=== PATIENT | male | born 1940 | race Asian ===

== ENCOUNTER 2017-11-29 23:55 | Emergency (ER) | payer SELFPAY ==
[~2017-11-29] VITALS: Ht 160 cm; Wt 54.4 kg
[2017-11-30] MEDS ORDERED: DEXAMETHASONE SOD PHOS 10MG/1ML VIAL INJ ONE (00:44)
[2017-11-30] MEDS ORDERED: cloNIDine HCL 0.1 MG TAB ONE (00:44)
[2017-11-30] MEDS ORDERED: cloNIDine HCL 0.1 MG TAB PO ONE (00:45)
[2017-11-30] MEDS ORDERED: DEXAMETHASONE SOD PHOS 10MG/1ML VIAL INJ IV ONE (00:45)
[2017-11-30] MEDS ORDERED: LEVETIRACETAM 500 MG/5ML INJ IV ONE (01:14)
[2017-11-30 01:15] LABS: Hemoglobin 16.8 g/dL (13.5-17.5); Mean Corpuscular Hgb Conc. 34.4 g/dL (32.0-36.0); Mean Corpuscular Volume 96.1 fL (80.0-100.0); Platelet Count (auto) 201 10^3/uL (140-450); Red Cell Distribution Width 12.2 % (11.8-14.3); White Blood Cell 15.9 10^3/uL (4.4-10.8)
[2017-11-30] MEDS ORDERED: LEVETIRACETAM INJ 1,000 MG in D5W 5% 100 ML IV ONE (01:15)
[2017-11-30 01:23] LABS: Alanine Aminotransferase 18 U/L (16-61); Anion Gap 17 (5-15); Aspartate Aminotransferase 21 U/L (15-37); BUN/Creatinine Ratio 9.8; Blood Alcohol < 3.0 mg/dL (0-5); Blood Urea Nitrogen 13 mg/dL (7-18); Calcium 9.5 mg/dL (8.5-10.1); Carbon Dioxide 20 mmol/L (21-32); Chloride 99 mmol/L (98-107); GFR African American 67 mL/min; GFR Non-African American 56 mL/min; Glucose 364 mg/dL (74-106); Potassium 3.9 mmol/L (3.5-5.1); Sodium 136 mmol/L (136-145)
[2017-11-30 01:27] LABS: Basophils % (manual) 0 (0.0-2.0); Blast Cells 0; Eosinophils % (manual) 0 (0-7); Metamyelocytes % 0; Myelocytes % 0; Promyelocytes % 0; Reactive Lymphocytes 0
[2017-11-30 01:39] VITALS: BP 141/78
[2017-11-30 01:41] LABS: Alkaline Phosphatase 98 U/L (45-117); Bilirubin, Total 0.7 mg/dL (0.2-1.0)
[2017-11-30 03:13] LABS: Band Neutrophils % (manual) 2; Lymphocytes % (manual) 8 (10.0-50.0); Monocytes % (manual) 1 (0-12)
== END 2017-11-30 01:09 | disposition short-term general hospital (02) ==
LOC: ER 23:55
DX: S06.6X0A Traumatic subarachnoid hemorrhage without loss of consciousness, initial encounter (principal); W19.XXXA Unspecified fall, initial encounter; Y93.89 Activity, other specified; Y92.89 Other specified places as the place of occurrence of the external cause; Y99.8 Other external cause status
CPT/HCPCS: 36415; 70450; 80053; 80320; 83735; 84484; 85007; 85027; 93005; 96374; 96375; 99291; J1100; J1953; J7060

== ENCOUNTER 2017-12-09 21:39 | Emergency (ER) | payer MEDICARE ==
[~2017-12-09] VITALS: Ht 160 cm; Wt 49.9 kg
[2017-12-10 05:33] VITALS: BP 144/83
== END 2017-12-10 05:40 | disposition home or self-care (01) ==
LOC: ER 21:39
DX: S06.5X9A Traumatic subdural hemorrhage with loss of consciousness of unspecified duration, initial encounter (principal); M54.9 Dorsalgia, unspecified; F17.210 Nicotine dependence, cigarettes, uncomplicated; M19.90 Unspecified osteoarthritis, unspecified site; W18.39XA Other fall on same level, initial encounter; Y93.9 Activity, unspecified; Y92.89 Other specified places as the place of occurrence of the external cause; Y99.8 Other external cause status
CPT/HCPCS: 70450; 72070; 72100